=== PATIENT | male | born 1965 | race American Indian/Alaskan Native ===

== ENCOUNTER 2017-12-18 09:49 | Outpatient (CLI) | payer OTHER ==
[2017-12-18 10:31] LABS: Albumin 3.9 g/dL (3.9-5); BUN/Creatinine Ratio 19; Blood Urea Nitrogen 19 mg/dL (9-20); Hemolysis Index 177
[2017-12-18 10:35] LABS: Alanine Aminotransferase 12 units/L (7-56)
== END 2017-12-18 09:50 | disposition home or self-care (01) ==
LOC: LAB 09:49
PROVIDERS: ATTEND Internal Medicine
DX: E11.9 Type 2 diabetes mellitus without complications (principal); M25.879 Other specified joint disorders, unspecified ankle and foot; H57.9 Unspecified disorder of eye and adnexa
CPT/HCPCS: 36415; 80053

== ENCOUNTER 2020-03-13 09:17 | Emergency (ER) | payer MEDICARE, OTHER ==
[2020-03-13] MEDS ORDERED: SUCCINYLCHOLINE CHLORIDE 200 MG/10 ML INJ MDV ONE (09:20)
[2020-03-13] MEDS ORDERED: ETOMIDATE 20 MG/10 ML INJ IV ONE (09:21)
[2020-03-13] MEDS ORDERED: MINERAL OIL/PETROLATUM, WHITE OPHTH OINT 3.5 GM OU PRN (09:37)
[2020-03-13] MEDS ORDERED: LIP THERAPY VASELINE TP PRN (09:37)
[2020-03-13] MEDS ORDERED: SODIUM CHLORIDE 0.9% 1000 ML 1,000 ML IV ONE ×2 (09:41)
[2020-03-13 09:55] LABS: ABG Base Excess -12.8 mmol/L (-2.0-3.0); ABG HCO3 12.9 mmol/L (20.0-26.0); ABG Methemoglobin 0.6 % (0.0-1.5); ABG Oxygen Saturation 99.3 % (95.0-99.0); ABG PCO2 29.2 mm Hg; ABG PH 7.261 pH Units (7.350-7.450); ABG PO2 228.7 mm Hg (80.0-90.0)
--- NOTE | 2020-03-13 10:27 | Emergency Department Report ---
ED Altered Mental Status HPI - General Chief Complaint: Dyspnea/Respdistress Stated Complaint: HYPERGLYCEMIA Time Seen by Provider: 03/13/20 09:36 Source: family, EMS Mode of arrival: Stretcher Limitations: Other - History of Present Illness Initial Comments: 54-year-old male with a past medical history of [id number] diabetes, CVA with residual unilateral arm weakness, and hypertension presents to the hospital with alteration in mental status, tachypnea, and hypoxia. I called patient's sister to obtain collateral information. Sister states they both live together. Patient has been not been feeling well for several days. He has generalized weakness with decreased appetite and decreased p.o. intake. He did not complain of pain, shortness of breath, nausea, vomiting, or diarrhea. He has had "a little cough". The sister called EMS to the house 2 days ago (on Friday). His glucose is 126 and he did not come to the hospital at that time. Last night she was able to feed him Ensure and water. This morning this morning she went to attempt to feed him and he was mumbling, decreased responsiveness, and spitting out food/liquids when she tried to put it in his mouth. EMS reports finding the patient with decreased mental status at the scene, hypoxia, and tachypnea. Patient arrives with nonrebreather satting in the 90s and breathing at a rate of 60 breaths/min. Patient's mental status was still diminished and he was unable to communicate or follow commands. Patient sister is Marcy who can be reached at [phone] - Related Data Home Medications Medication Instructions Recorded Confirmed Last Taken Cholecalciferol (Vitamin D3) 50,000 units PO 1XW 03/13/20 03/13/20 Unknown [Vitamin D3] Ferrous Sulfate [Iron 325 MG] 65 mg PO DAILY 03/13/20 03/13/20 Unknown Lisinopril [Zestril] 5 mg PO DAILY 03/13/20 03/13/20 Unknown Metformin HCl [metFORMIN] 1,000 mg PO BID 03/13/20 03/13/20 Unknown Simvastatin 40 mg PO DAILY 03/13/20 03/13/20 Unknown Allergies Allergy/AdvReac Type Severity Reaction Status Date / Time No Known Allergies Allergy Unverified 03/13/20 09:43 ED Review of Systems ROS: Stated complaint: HYPERGLYCEMIA Other details as noted in HPI Comment: Unobtainable due to pts medical conditions ED Past Medical Hx - Past Medical History Previous Medical History?: Yes Hx Hypertension: Yes Hx CVA: Yes Hx Diabetes: Yes - Social History Smoking Status: Unknown if ever smoked - Medications Home Medications: Home Medications Medication Instructions Recorded Confirmed Last Taken Type Cholecalciferol (Vitamin D3) 50,000 units PO 1XW 03/13/20 03/13/20 Unknown History [Vitamin D3] Ferrous Sulfate [Iron 325 MG] 65 mg PO DAILY 03/13/20 03/13/20 Unknown History Lisinopril [Zestril] 5 mg PO DAILY 03/13/20 03/13/20 Unknown History Metformin HCl [metFORMIN] 1,000 mg PO BID 03/13/20 03/13/20 Unknown History Simvastatin 40 mg PO DAILY 03/13/20 03/13/20 Unknown History ED Physical Exam - General Limitations: Other - Other Other exam information: General: No acute distress Head: Atraumatic Eyes: normal appearance ENT: Moist mucous membranes Neck: Normal appearance, no midline tenderness Chest: Clear to auscultation bilaterally, tachypnea CV: Tachycardic regular rhythm Abdomen: Soft, normal bowel sounds, nontender, nondistended, no rebound or guarding Back: Normal inspection Extremity: Normal inspection, full range of motion Neuro: Unresponsive, nonverbal, withdraws to painful stimuli Skin: No rash ED Course Vital Signs 03/13/20 03/13/20 03/13/20 09:15 09:16 09:31 Temperature Pulse Rate 139 H 133 H 130 H Respiratory 40 H 14 Rate Blood Pressure 98/61 Blood Pressure 81/58 [Right] O2 Sat by Pulse 89 94 Oximetry 03/13/20 03/13/20 03/13/20 09:45 09:52 10:00 Temperature Pulse Rate 139 H 138 H 141 H Respiratory 47 H 36 H Rate Blood Pressure 92/42 100/58 82/62 Blood Pressure [Right] O2 Sat by Pulse 100 88 Oximetry 03/13/20 03/13/20 03/13/20 10:01 10:15 10:31 Temperature 99.7 F H Pulse Rate 136 H 113 H Respiratory 43 H 17 Rate Blood Pressure 94/68 185/110 Blood Pressure [Right] O2 Sat by Pulse 35 L 52 L Oximetry 03/13/20 03/13/20 10:45 11:01 Temperature Pulse Rate 129 H 59 L Respiratory 34 H 85 H Rate Blood Pressure 240/184 Blood Pressure [Right] O2 Sat by Pulse 56 L 41 L Oximetry - Reevaluation(s) Reevaluation #1: 03/13/20 Patient was prepped for intubation upon arrival secondary to diminish mental status, tachypnea, and hypoxia requiring nonrebreather oxygen support. Intubation was performed without difficulty. Stat ABG performed shows a metabolic acidosis with partial respiratory compensation. Labs ordered with stat sepsis protocol. Propofol initiated with systolic above 100. I was notified by phlebotomy that they had difficulty obtaining blood for labs and repeat blood pressure attention. Set up for central line. Upon arrival to the room CPR was just initiated since patient developed pulseless arrest. Is at the bedside throughout resuscitation efforts. Patient received multiple doses of epinephrine and sodium bicarb during resuscitation efforts. Patient was in PEA initially, V. fib, then ultimately developed persistent asystole despite resuscitation efforts. Central line placed emergently in the right femoral vein during resuscitation and lab sent from central line. Unfortunately patient did not regain return of spontaneous circulation and time of 11:07 AM. I instructed charge nurse to contact sister to have her come to the hospital to inform her of of patient's - Consultations Consultation #1: 03/13/20 10:04 EKG reviewed by staff sonographer stgemi - Central Line Placement Right Femoral Consent Obtained: emergent situation Time Out Performed: Yes Patient Placed on Monitor/Pulse Ox: Yes Prep: mask, gown, gloves Central Line Prep: Chlorhexidine scrub Local Anesthesia Used: Lidocaine 1% Amount of Anesthesia Used (mls): 5 Ultrasound Used for Placement: No Central Line Lumen Inserted: triple Bloods Obtained for Lab: Yes Central Line Position: good blood return, sutured in place with 3-0, sutured in place with nyl Dressing Applied: Tegaderm Patient Tolerated Procedure: well Complications: none - Intubation Time Out Performed: Yes Sedative: Etomidate Mg Given: 20 Paralytic: Succinylcholine Mg Given: 100 Laryngoscope: Blair Size: 4 ET Tube Size: 7.5 Tube Secured Depth (cm): 24 Tube Secured Location: lips Tube Placement Confirmation: visualized tube passing t, equal breath sounds bilat, no breath sounds over epi, confirmation by capnometr Patient Tolerated Procedure: well Intubation Complications: none - Lab Data Result diagrams: 03/13/20 09:38 Lab Results 03/13/20 03/13/20 03/13/20 Range/Units 09:38 09:38 09:39 D-Dimer (0-234) ng/mlDDU ABG pH (7.350-7.450) pH Units ABG pCO2 mm Hg ABG pO2 (80.0-90.0) mm Hg ABG HCO3 (20.0-26.0) mmol/L ABG O2 Saturation (95.0-99.0) % ABG O2 Content (0.0-44) ABG Base Excess (-2.0-3.0) mmol/L ABG Hemoglobin (14.0-18.0) gm/dl ABG Carboxyhemoglobin (0.0-5.0) % ABG Methemoglobin (0.0-1.5) % VBG pH (7.320-7.420) Oxyhemoglobin (95.0-99.0) % FiO2 % Sodium 147 H (137-145) mmol/L Potassium 5.4 H (3.6-5.0) mmol/L Chloride 106.4 (98-107) mmol/L Carbon Dioxide 12 L (22-30) mmol/L Anion Gap 34 mmol/L BUN 60 H (9-20) mg/dL Creatinine 3.2 H (0.8-1.5) mg/dL Estimated GFR 25 ml/min BUN/Creatinine Ratio 19 % Glucose 391 H (75-100) mg/dL POC Glucose 358 H (70-105) Lactic Acid (0.7-2.0) mmol/L Calcium 7.5 L (8.4-10.2) mg/dL Magnesium 3.00 H (1.7-2.3) mg/dL Ferritin (13.0-400.0) ng/mL Total Bilirubin 0.50 (0.1-1.2) mg/dL AST 367 H (5-40) units/L ALT 281 H (7-56) units/L Alkaline Phosphatase 34 L (35-129) units/L Ammonia (25-60) umol/L Lactate Dehydrogenase (91-180) units/L Total Creatine Kinase (55-170) units/L CK-MB (CK-2) (0.0-4.0) ng/mL CK-MB (CK-2) Rel Index (0-4) Troponin T (0.00-0.029) ng/mL C-Reactive Protein (0.00-1.30) mg/dL Total Protein 5.0 L (6.3-8.2) g/dL Albumin 2.4 L (3.9-5) g/dL Albumin/Globulin Ratio 0.9 % Triglycerides (2-149) mg/dL Cholesterol (50-199) mg/dL LDL Cholesterol Direct (50-130) mg/dL HDL Cholesterol (40-59) mg/dL Cholesterol/HDL Ratio % Procalcitonin (<0.15) ng/mL Salicylates (2.8-20.0) mg/dL Acetaminophen (10.0-30.0) ug/mL 03/13/20 03/13/20 03/13/20 Range/Units 09:40 09:40 09:50 D-Dimer > 97145 H (0-234) ng/mlDDU ABG pH 7.261 L (7.350-7.450) pH Units ABG pCO2 29.2 mm Hg ABG pO2 228.7 H (80.0-90.0) mm Hg ABG HCO3 12.9 L (20.0-26.0) mmol/L ABG O2 Saturation 99.3 H (95.0-99.0) % ABG O2 Content 17.4 (0.0-44) ABG Base Excess -12.8 L (-2.0-3.0) mmol/L ABG Hemoglobin 12.3 L (14.0-18.0) gm/dl ABG Carboxyhemoglobin 1.0 (0.0-5.0) % ABG Methemoglobin 0.6 (0.0-1.5) % VBG pH (7.320-7.420) Oxyhemoglobin 97.8 (95.0-99.0) % FiO2 100 % Sodium (137-145) mmol/L Potassium (3.6-5.0) mmol/L Chloride (98-107) mmol/L Carbon Dioxide (22-30) mmol/L Anion Gap mmol/L BUN (9-20) mg/dL Creatinine (0.8-1.5) mg/dL Estimated GFR ml/min BUN/Creatinine Ratio % Glucose Cancelled (75-100) mg/dL POC Glucose (70-105) Lactic Acid (0.7-2.0) mmol/L Calcium (8.4-10.2) mg/dL Magnesium (1.7-2.3) mg/dL Ferritin (13.0-400.0) ng/mL Total Bilirubin (0.1-1.2) mg/dL AST (5-40) units/L ALT (7-56) units/L Alkaline Phosphatase (35-129) units/L Ammonia (25-60) umol/L Lactate Dehydrogenase 1231 H (91-180) units/L Total Creatine Kinase 2514 H (55-170) units/L CK-MB (CK-2) 8.8 H (0.0-4.0) ng/mL CK-MB (CK-2) Rel Index 0.3 (0-4) Troponin T 0.332 H* (0.00-0.029) ng/mL C-Reactive Protein 5.10 H (0.00-1.30) mg/dL Total Protein (6.3-8.2) g/dL Albumin (3.9-5) g/dL Albumin/Globulin Ratio % Triglycerides 279 H (2-149) mg/dL Cholesterol 123 (50-199) mg/dL LDL Cholesterol Direct 60 (50-130) mg/dL HDL Cholesterol 35 L (40-59) mg/dL Cholesterol/HDL Ratio 3.51 % Procalcitonin (<0.15) ng/mL Salicylates (2.8-20.0) mg/dL Acetaminophen (10.0-30.0) ug/mL 03/13/20 03/13/20 03/13/20 Range/Units 11:09 11:09 11:09 D-Dimer (0-234) ng/mlDDU ABG pH (7.350-7.450) pH Units ABG pCO2 mm Hg ABG pO2 (80.0-90.0) mm Hg ABG HCO3 (20.0-26.0) mmol/L ABG O2 Saturation (95.0-99.0) % ABG O2 Content (0.0-44) ABG Base Excess (-2.0-3.0) mmol/L ABG Hemoglobin (14.0-18.0) gm/dl ABG Carboxyhemoglobin (0.0-5.0) % ABG Methemoglobin (0.0-1.5) % VBG pH (7.320-7.420) Oxyhemoglobin (95.0-99.0) % FiO2 % Sodium (137-145) mmol/L Potassium (3.6-5.0) mmol/L Chloride (98-107) mmol/L Carbon Dioxide (22-30) mmol/L Anion Gap mmol/L BUN (9-20) mg/dL Creatinine (0.8-1.5) mg/dL Estimated GFR ml/min BUN/Creatinine Ratio % Glucose (75-100) mg/dL POC Glucose (70-105) Lactic Acid 14.30 H* (0.7-2.0) mmol/L Calcium (8.4-10.2) mg/dL Magnesium (1.7-2.3) mg/dL Ferritin (13.0-400.0) ng/mL Total Bilirubin (0.1-1.2) mg/dL AST (5-40) units/L ALT (7-56) units/L Alkaline Phosphatase (35-129) units/L Ammonia 135.0 H (25-60) umol/L Lactate Dehydrogenase (91-180) units/L Total Creatine Kinase (55-170) units/L CK-MB (CK-2) (0.0-4.0) ng/mL CK-MB (CK-2) Rel Index (0-4) Troponin T (0.00-0.029) ng/mL C-Reactive Protein (0.00-1.30) mg/dL Total Protein (6.3-8.2) g/dL Albumin (3.9-5) g/dL Albumin/Globulin Ratio % Triglycerides (2-149) mg/dL Cholesterol (50-199) mg/dL LDL Cholesterol Direct (50-130) mg/dL HDL Cholesterol (40-59) mg/dL Cholesterol/HDL Ratio % Procalcitonin (<0.15) ng/mL Salicylates < 0.3 L (2.8-20.0) mg/dL Acetaminophen (10.0-30.0) ug/mL 03/13/20 03/13/20 03/13/20 Range/Units 11:09 11:09 11:09 D-Dimer (0-234) ng/mlDDU ABG pH (7.350-7.450) pH Units ABG pCO2 mm Hg ABG pO2 (80.0-90.0) mm Hg ABG HCO3 (20.0-26.0) mmol/L ABG O2 Saturation (95.0-99.0) % ABG O2 Content (0.0-44) ABG Base Excess (-2.0-3.0) mmol/L ABG Hemoglobin (14.0-18.0) gm/dl ABG Carboxyhemoglobin (0.0-5.0) % ABG Methemoglobin (0.0-1.5) % VBG pH 6.927 L* (7.320-7.420) Oxyhemoglobin (95.0-99.0) % FiO2 % Sodium (137-145) mmol/L Potassium (3.6-5.0) mmol/L Chloride (98-107) mmol/L Carbon Dioxide (22-30) mmol/L Anion Gap mmol/L BUN (9-20) mg/dL Creatinine (0.8-1.5) mg/dL Estimated GFR ml/min BUN/Creatinine Ratio % Glucose (75-100) mg/dL POC Glucose (70-105) Lactic Acid (0.7-2.0) mmol/L Calcium (8.4-10.2) mg/dL Magnesium (1.7-2.3) mg/dL Ferritin 1788.0 H (13.0-400.0) ng/mL Total Bilirubin (0.1-1.2) mg/dL AST (5-40) units/L ALT (7-56) units/L Alkaline Phosphatase (35-129) units/L Ammonia (25-60) umol/L Lactate Dehydrogenase (91-180) units/L Total Creatine Kinase (55-170) units/L CK-MB (CK-2) (0.0-4.0) ng/mL CK-MB (CK-2) Rel Index (0-4) Troponin T (0.00-0.029) ng/mL C-Reactive Protein (0.00-1.30) mg/dL Total Protein (6.3-8.2) g/dL Albumin (3.9-5) g/dL Albumin/Globulin Ratio % Triglycerides (2-149) mg/dL Cholesterol (50-199) mg/dL LDL Cholesterol Direct (50-130) mg/dL HDL Cholesterol (40-59) mg/dL Cholesterol/HDL Ratio % Procalcitonin (<0.15) ng/mL Salicylates (2.8-20.0) mg/dL Acetaminophen < 5.0 L (10.0-30.0) ug/mL 03/13/20 Range/Units 11:09 D-Dimer (0-234) ng/mlDDU ABG pH (7.350-7.450) pH Units ABG pCO2 mm Hg ABG pO2 (80.0-90.0) mm Hg ABG HCO3 (20.0-26.0) mmol/L ABG O2 Saturation (95.0-99.0) % ABG O2 Content (0.0-44) ABG Base Excess (-2.0-3.0) mmol/L ABG Hemoglobin (14.0-18.0) gm/dl ABG Carboxyhemoglobin (0.0-5.0) % ABG Methemoglobin (0.0-1.5) % VBG pH (7.320-7.420) Oxyhemoglobin (95.0-99.0) % FiO2 % Sodium (137-145) mmol/L Potassium (3.6-5.0) mmol/L Chloride (98-107) mmol/L Carbon Dioxide (22-30) mmol/L Anion Gap mmol/L BUN (9-20) mg/dL Creatinine (0.8-1.5) mg/dL Estimated GFR ml/min BUN/Creatinine Ratio % Glucose (75-100) mg/dL POC Glucose (70-105) Lactic Acid (0.7-2.0) mmol/L Calcium (8.4-10.2) mg/dL Magnesium (1.7-2.3) mg/dL Ferritin (13.0-400.0) ng/mL Total Bilirubin (0.1-1.2) mg/dL AST (5-40) units/L ALT (7-56) units/L Alkaline Phosphatase (35-129) units/L Ammonia (25-60) umol/L Lactate Dehydrogenase (91-180) units/L Total Creatine Kinase (55-170) units/L CK-MB (CK-2) (0.0-4.0) ng/mL CK-MB (CK-2) Rel Index (0-4) Troponin T (0.00-0.029) ng/mL C-Reactive Protein (0.00-1.30) mg/dL Total Protein (6.3-8.2) g/dL Albumin (3.9-5) g/dL Albumin/Globulin Ratio % Triglycerides (2-149) mg/dL Cholesterol (50-199) mg/dL LDL Cholesterol Direct (50-130) mg/dL HDL Cholesterol (40-59) mg/dL Cholesterol/HDL Ratio % Procalcitonin 0.30 (<0.15) ng/mL Salicylates (2.8-20.0) mg/dL Acetaminophen (10.0-30.0) ug/mL - EKG Data -: EKG Interpreted by Ma EKG shows normal: sinus rhythm Rate: tachycardia (138) - Radiology Data Radiology results: report reviewed CHEST 1 VIEW INDICATION: ETT placement. COMPARISON: None FINDINGS: Support devices: An endotracheal tube has been inserted which terminates 4.6 cm superior to the vijay. Heart: Borderline to mild cardiomegaly. Lungs/Pleura: No acute air space or interstitial disease. No pleural effusion or pneumothorax is appreciated. Additional findings: None. IMPRESSION: Adequate placement of the endotracheal tube. Borderline to mild cardiomegaly. - Medical Decision Making Unfortunately patient developed cardiopulmonary arrest and did not respond to resuscitation efforts (see code sheet). His Sister Marcy came to the ED and was informed of patient's Critical Care Time: Yes Critical care time in (mins) excluding proc time.: 35 Critical care attestation.: If time is entered above; I have spent that time in minutes in the direct care of this critically ill patient, excluding procedure time. ED Disposition Clinical Impression: Cardiopulmonary arrest, Metabolic acidosis Disposition: DC-20 Is pt being admited?: No Condition: Stable Time of Disposition: 14:27
--- NOTE | 2020-03-13 10:43 | XRay Report ---
CHEST 1 VIEW INDICATION: ETT placement. COMPARISON: None FINDINGS: Support devices: An endotracheal tube has been inserted which terminates 4.6 cm superior to the francie a. Heart: Borderline to mild cardiomegaly. Lungs/Pleura: No acute air space or interstitial disease. No pleural effusion or pneumothorax is appr eciated. Additional findings: None. IMPRESSION: Adequate placement of the endotracheal tube. Borderline to mild cardiomegaly. Signer Name: Tanvir Crump Jr, MD Signed: 03/13/2020 10:39 AM Workstation Name: [id number]
[2020-03-13] MEDS ORDERED: NORepinephrine/NS 4 MG-250 ML 4 MG/250 ML BAG IV ONE (10:56)
[2020-03-13 11:15] VITALS: BP 240/184
[2020-03-13 11:37] LABS: Creatine Kinase MB 8.8 ng/mL (0.0-4.0)
[2020-03-13 11:38] LABS: Albumin 2.4 g/dL (3.9-5); Calcium 7.5 mg/dL (8.4-10.2)
[2020-03-13 11:39] LABS: C-Reactive Protein 5.1 mg/dL (0.00-1.30)
[2020-03-13 12:26] LABS: Chol/HDL Ratio 3.51 %
== END 2020-03-13 15:24 ==
LOC: ED 09:17
DX: I46.9 Cardiac arrest, cause unspecified (principal); E87.2 Acidosis; I10 Essential (primary) hypertension; Z86.73 Personal history of transient ischemic attack (TIA), and cerebral infarction without residual deficits; E11.65 Type 2 diabetes mellitus with hyperglycemia; Z79.899 Other long term (current) drug therapy
CPT/HCPCS: 31500; 36415; 36556; 71045; 80053; 80061; 82140; 82550; 82553; 82728; 82803; 82805; 82962; 83615; 83735; 84145; 84484; 85379; 86140; 87040; 92950; 93005; 94002; 96360; 99291; J0330; J2704; J7030; 80320; G0480